=== PATIENT | male | born 1970 | race Hispanic/Latino ===

== ENCOUNTER → 2017-10-03 | Emergency (ER) | payer SELFPAY ==
[~2017-10-03] MED LIST: DICYCLOMINE HCL 10 MG/5 ML ML PO ONE; KETOROLAC TROMETHAMINE 30MG/ML ONE; LIDOCAINE HCL 2% VISCOUS 15 ML UDCUP ONE; MAG HYDROX/AL HYDROX/SIMETH ES 30 ML SUSP UDCUP ONE; METOCLOPRAMIDE 10 MG/2 ML VIAL ONE; SODIUM CHLORIDE 0.9% 1000ML 1,000 ML IV ONE
[2017-10-03 18:30] LABS: BASOPHILS % (AUTO) 0.4 % (0.0-5.0); EOSINOPHILS % (AUTO) 0.3 % (0.0-8.0); HEMATOCRIT 44.4 % (42-54); LYMPHOCYTES % (AUTO) 13.1 % (21.0-51.0); MEAN CORPUSCULAR HEMOGLOBIN 29.1 pg (27.0-33.0); MEAN CORPUSCULAR HGB CONC 34.4 g/dL (32.0-36.0); MEAN CORPUSCULAR VOLUME 84.4 fL (79-99); MONOCYTES % (AUTO) 4.1 % (3.0-13.0); NEUTROPHILS % (AUTO) 82.1 % (40.0-77.0); PLATELET COUNT (AUTO) 212 K/uL (130-400); RED BLOOD CELL COUNT(AUTO) 5.26 MIL/uL (4.50-6.20); RED CELL DISTRIBUTION WIDTH 13.8 % (11.0-15.5); WHITE BLOOD COUNT (AUTO) 12.7 K/uL (4.8-10.8)
[2017-10-03 18:32] LABS: CREATININE 1.1 mg/dL (0.5-1.5); POTASSIUM 3.4 mmol/L (3.5-5.1)
[2017-10-03 18:37] LABS: ALBUMIN 4.1 g/dL (3.5-5.0); BILIRUBIN,TOTAL 0.8 mg/dL (0.2-1.0); TOTAL PROTEIN, SERUM 7.8 g/dL (6.0-8.3)
[2017-10-03 18:49] LABS: CREATINE KINASE MB 0.7 ng/mL (0.5-3.6); CREATINE KINASE, TOTAL 195 U/L (21-232); MYOGLOBIN 95 ng/mL (10-92); TROPONIN I < 0.04 ng/mL (0.00-0.06)
== END ==
LOC: EDH 17:44
DX: R10.13 Epigastric pain (principal); R11.2 Nausea with vomiting, unspecified; B96.81 Helicobacter pylori [H. pylori] as the cause of diseases classified elsewhere; E11.9 Type 2 diabetes mellitus without complications; I10 Essential (primary) hypertension; E78.5 Hyperlipidemia, unspecified
CPT/HCPCS: 36415; 80053; 82550; 82553; 83690; 83874; 84484; 85025; 86677; 87804 ×2; 93005; 96361; 96374; 96375; 99285; J1885; J2765; J7030